=== PATIENT | female | born 1975 | race Hispanic/Latino ===

== ENCOUNTER 2017-07-04 21:37 | Emergency (ER) | payer OTHER ==
[2017-07-04 21:53] VITALS: BP 133/88; PULSE 78; RESP 16; TEMP 98; O2SAT 99
--- NOTE | 2017-07-04 22:02 | ED PDOC ---
Upper Extremity Pain/Injury Time Seen by Provider: 07/04/17 21:53 Chief Complaint (Nursing): Finger,Hand,&Wrist Chief Complaint (Provider): Left Hand Injury History Per: Patient History/Exam Limitations: no limitations Onset/Duration Of Symptoms: Mins Current Symptoms Are (Timing): Still Present Quality: "Pain" Additional Complaint(s): 41 y/o female presents to the ED with a left hand injury. Patient states she attempted to catch a football when it struck the palm side of her left hand. She is complaining of mild tenderness and swelling. Patient states she injured the same hand and sustained a limitation in the ROM to the left pinky but did not seek medical attention 1 year ago. Denies any numbness, tingling, other injury. PMD: Dr. Russell Dempsey Past Medical History Reviewed: Historical Data, Nursing Documentation, Vital Signs Vital Signs: Last Vital Signs Temp 98.0 F 07/04/17 21:48 Pulse 78 07/04/17 21:48 Resp 16 07/04/17 21:48 BP 133/88 07/04/17 21:48 Pulse Ox 99 07/04/17 21:48 - Medical History PMH: No Chronic Diseases - Surgical History Surgical History: No Surg Hx - Family History Family History: States: No Known Family Hx - Social History Current smoker - smoking cessation education provided: No Ex-Smoker (has not smoked in the last 12 months): No Drugs: Denies - Allergies Allergies/Adverse Reactions: Allergies Allergy/AdvReac Type Severity Reaction Status Date / Time Penicillins Allergy Mild RASH Verified 07/04/17 21:53 Review of Systems ROS Statement: Except As Marked, All Systems Reviewed And Found Negative Constitutional: Negative for: Other (other injury) Musculoskeletal: Positive for: Hand Pain (left with swelling) Neurological: Negative for: Numbness, Other (tingling) Physical Exam - Reviewed Nursing Documentation Reviewed: Yes Vital Signs Reviewed: Yes - Physical Exam Appears: Positive for: Well, Non-toxic, No Acute Distress Head Exam: Positive for: ATRAUMATIC, NORMAL INSPECTION, NORMOCEPHALIC Skin: Positive for: Normal Color (no break in skin integrity of the left hand), Warm Eye Exam: Positive for: EOMI, Normal appearance, PERRL ENT: Positive for: Normal ENT Inspection Neck: Positive for: Normal, Painless ROM Cardiovascular/Chest: Positive for: Regular Rate, Rhythm Respiratory: Positive for: CNT, Normal Breath Sounds Pulses-Radial (L): 2+ Pulses-Radial (R): 2+ Gastrointestinal/Abdominal: Positive for: Normal Exam, Soft Back: Positive for: Normal Inspection Extremity: Positive for: Normal ROM, Calf Tenderness (less than 2 seconds), Swelling (moderate swelling to dorsal aspect of the left hand with the 5th MCP) . Negative for: Tenderness, Deformity Neurologic/Psych: Positive for: Alert, Oriented (x3) - ECG O2 Sat by Pulse Oximetry: 99 (RA) Pulse Ox Interpretation: Normal - Radiology X-Ray: Interpreted by Me (L hand x-ray) X-Ray Interpretation: Other (non-displaced spiral fx and mid 5th MCP) Medical Decision Making Medical Decision Making: Time: 21:48 Impression: Hand injury Initial Plan: * Left hand x-ray * Offered pain meds but refused * Hand immobilized in orthoglass ulnar gutter splint applied by PA * Case d/w Dr. Villalta who agrees with care and states pt. can f/u in his office. * CD copy of xrays given to patient. Scribe Attestation: Documented by Brock Bates acting as a scribe for Trey Recinos PA-C. MD Scribe Attestation: All medical record entries made by the Scribe were at my direction and personally dictated by me. I have reviewed the chart and agree that the record accurately reflects my personal performance of the history, physical exam, medical decision making, and the department course for this patient. I have also personally directed, reviewed, and agree with the discharge instructions and disposition. Disposition - Clinical Impression Clinical Impression: Hand fracture - Patient ED Disposition Is Patient to be Admitted: No - Disposition Referrals: [facility] [Outside] Sherman Villalta MD [Staff Provider] - Disposition: Routine/Home Disposition Time: 22:40 Condition: STABLE Additional Instructions: Follow up with Dr. Villalta for further evaluation Return to ED immediately if symptoms worsen Instructions: Hand Fracture (DC) Forms: [facility] (Filipino), [facility] School/Work Excuse Print Language: ARMENIAN
--- NOTE | 2017-07-05 07:58 | RAD ---
PROCEDURE: Left Hand Radiographs. HISTORY: trauma COMPARISON: None. FINDINGS: BONES: Oblique fracture midshaft 5th metacarpal. JOINTS: Normal. No osteoarthritic changes. SOFT TISSUES: Soft tissue swelling attests to the acuity of the fracture. OTHER FINDINGS: None. IMPRESSION: Acute oblique fracture midshaft left 5th metacarpal.
== END 2017-07-04 22:50 | disposition home or self-care (01) ==
LOC: H.ER 21:37
DX: S62.307A Unspecified fracture of fifth metacarpal bone, left hand, initial encounter for closed fracture (principal); W22.8XXA Striking against or struck by other objects, initial encounter; Y92.321 Football field as the place of occurrence of the external cause; Z88.0 Allergy status to penicillin